=== PATIENT | female | born 1955 | race Caucasian/White ===

== ENCOUNTER → 2016-09-26 | Outpatient (CLI) | payer OTHER | LOC: BMCIMAGING 10:20 | PROVIDERS: ATTEND Podiatrist Foot & Ankle Surgery | DX: M79.672 Pain in left foot (principal) ==

== ENCOUNTER → 2017-05-20 | Outpatient (CLI) | payer OTHER | LOC: FIMAGING 14:50 | PROVIDERS: ATTEND Physician Assistant Medical | DX: Z12.31 Encounter for screening mammogram for malignant neoplasm of breast (principal); R92.8 Other abnormal and inconclusive findings on diagnostic imaging of breast | CPT/HCPCS: G0202 ==

== ENCOUNTER → 2017-05-29 | Outpatient (CLI) | payer OTHER | LOC: FIMAGING 09:04 | PROVIDERS: ATTEND Physician Assistant Medical | DX: R92.8 Other abnormal and inconclusive findings on diagnostic imaging of breast (principal); Z80.3 Family history of malignant neoplasm of breast | CPT/HCPCS: G0204 ==

== ENCOUNTER → 2017-06-09 | Outpatient (CLI) | payer OTHER ==
[~2017-06-09] MED LIST: BUPIVACAINE 0.5% 10 ML SDV ONE; LIDOCAINE 1% 300 MG/30 ML SDV ONE
== END ==
LOC: FIMAGING 07:06
PROVIDERS: ATTEND Physician Assistant Medical
PROC: 0HBV3ZX Excision of Bilateral Breast, Percutaneous Approach, Diagnostic (ICD-10-PCS; principal; 2017-06-09)
DX: C50.911 Malignant neoplasm of unspecified site of right female breast (principal); N60.12 Diffuse cystic mastopathy of left breast

== ENCOUNTER 2017-07-08 10:40 | Observation (INO) | payer OTHER ==
[2017-07-08] MEDS ORDERED: LR 1,000 ML IV ONE (10:51)
[2017-07-08] MEDS ORDERED: ceFAZolin 2 GM/SWFI 2 GM/20 ML SYR IVP ONE (10:51)
[2017-07-08] MEDS ORDERED: THROMBIN (BOVINE) 20,000 UNIT SPRAY TP ONE (11:06)
[2017-07-08] MEDS ORDERED: BUPIVACAINE 0.25% 30 ML SDV ONE ×2 (11:06→11:09)
[2017-07-08] MEDS ORDERED: GENTAMICIN SULFATE 80 MG/2 ML VIAL ONE (11:07)
[2017-07-08] MEDS ORDERED: BACITRACIN ZINC 14.2 GM OINTTUBE TP ONE (11:07)
[2017-07-08] MEDS ORDERED: BACITRACIN 50,000 UNITS/10 ML SYR IRR ONE (11:08)
[2017-07-08] MEDS ORDERED: ceFAZolin 1 GM/5 ML SYR ONE (11:08)
--- NOTE | 2017-07-08 12:52 | PDHPUP ---
History & Physical Update H&P update statement: This history and physical update is based on an assessment of the patient which was completed after admission or registration (within 24 hours), but prior to the surgery/procedure. H&P update: H&P reviewed & patient examined, no change in patient's condition since H&P completed (Dr. Carver will be doing reconstruction)
[2017-07-08] MEDS ORDERED: PROPOFOL 200 MG/20 ML VIAL ONE (13:16)
[2017-07-08] MEDS ORDERED: fentaNYL 250 MCG/5 ML INJ ONE (13:16)
[2017-07-08] MEDS ORDERED: LIDOCAINE 2% 5 ML SDV ONE (13:25)
[2017-07-08] MEDS ORDERED: ROCURONIUM 50 MG/5 ML VIAL ONE ×3 (13:25→16:09)
[2017-07-08] MEDS ORDERED: DEXAMETHASONE 4 MG/ML VIAL ONE (13:42)
[2017-07-08] MEDS ORDERED: ONDANSETRON 4 MG/2 ML VIAL ONE ×2 (13:43→17:29)
[2017-07-08] MEDS ORDERED: SUGAMMADEX SODIUM 200 MG/2 ML VIAL IVP ONE ×2 (13:44→17:29)
[2017-07-08] MEDS ORDERED: MIDAZOLAM 2 MG/2 ML VIAL IVP ONE (13:46)
--- NOTE | 2017-07-08 13:49 | PDANEPAE ---
ANE History of Present Illness h/o breast ca. for b/l mastectomy and reconstruction ANE Past Medical History - Cardiovascular History Hx Hypertension: No Hx Arrhythmias: No Hx Chest Pain: No Hx Coronary Artery / Peripheral Vascular Disease: No Hx CHF / Valvular Disease: No Hx Palpitations: No - Pulmonary History Hx COPD: No Hx Asthma/Reactive Airway Disease: No Hx Recent Upper Respiratory Infection: No Hx Oxygen in Use at Home: No Hx Sleep Apnea: No Sleep Apnea Screening Result - Last Documented: Negative - Neurologic History Hx Cerebrovascular Accident: No Hx Seizures: No Hx Dementia: No - Endocrine History Hx Diabetes: No Hypothyroid: No Hyperthyroid: No Obesity: no - Renal History Hx Renal Disorders: No - Liver History Hx Hepatic Disorders: No - Neurological & Psychiatric Hx Hx Neurological and Psychiatric Disorders: Yes Neurological / Psychiatric History Comment: 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 - Cancer History Hx Cancer: No - Congenital Disorder History Hx Congenital Disorders: No - GI History GERD: no Hx Gastrointestinal Disorders: No - Chronic Pain History Chronic Pain: No - Surgical History Prior Surgeries: none ANE Review of Systems Review of systems is: negative Review of Systems: - Exercise capacity METS (RN): 5 METS ANE Patient History - Allergies Allergies/Adverse Reactions: No Known Allergies Allergy (Verified 07/02/17 10:52) - Home Medications Home medications: home medication list seen and reviewed Home Medications: Herbals/Supplements -Info Only 1 ea PO DAILY 07/02/17 [Last Taken Unknown] - NPO status NPO Since - Liquids (Date): 07/08/17 NPO Since - Liquids (Time): 08:00 NPO Since - Solids (Date): 07/07/17 NPO Since - Solids (Time): 22:30 - Anes Hx Anes Hx: no prior problems - Smoking Hx Smoking Status: Never smoked - Family Anes Hx Family Hx Anesthesia Complications: none ANE Labs/Vital Signs - Vital Signs Blood Pressure: 105/75 Heart Rate: 57 Respiratory Rate: 16 O2 Sat (%): 98 Height: 170.18 cm Weight: 71.668 kg ANE Physical Exam - Airway Neck exam: FROM Mallampati Score: Class 1 Mouth exam: normal dental/mouth exam - Pulmonary Pulmonary: no respiratory distress - Cardiovascular Cardiovascular: regular rate and rhythym - ASA Status ASA Status: II ANE Anesthesia Plan Anesthesia Plan: general endotracheal anesthesia
[2017-07-08] MEDS ORDERED: MIDAZOLAM 2 MG/2 ML VIAL ONE (13:53)
[2017-07-08] MEDS ORDERED: HYDROmorphONE/DILAUDID 2 MG/ML INJ ONE (14:20)
[2017-07-08] MEDS ORDERED: METHYLENE BLUE 0.5% 50 MG/10 ML AMP ONE (15:41)
[2017-07-08] MEDS ORDERED: ceFAZolin 1 GM VIAL ONE (16:58)
[2017-07-08] MEDS ORDERED: KETOROLAC 30 MG/1 ML SDV ONE (17:29)
--- NOTE | 2017-07-08 17:35 | POSTANESTH ---
Post Anesthetic Evaluation Cardiovascular Status: Normal, Stable Respiratory Status: Normal, Stable Level of Consciousness/Mental Status: Can Participate in Eval Pain Control: Adequate, Prn Tx Ordered Nausea/Vomiting Control: Adequate, Prn Tx Ordered Complications Possibly Related to Anesthesia: None Noted
--- NOTE | 2017-07-08 17:44 | POSTOPPROG ---
Post Op Note Date of Operation: 07/08/17 Surgeon: Gricel Perez Gopherman: niurka Anesthesia: GET(General Endotracheal) Pre-op Diagnosis: R breast ca Post-op Diagnosis: same Indication: 61yo F with R breast cancer Procedure: B mastectomy, B SLN bx Findings: B SLN neg Inf/Abcess present in the surg proc area at time of surgery?: No EBL: Minimal
[2017-07-08] MEDS ORDERED: HYDROmorphONE/DILAUDID 1 MG/ML INJ IVP PRN ×2 (17:47→18:01)
[2017-07-08] MEDS ORDERED: ONDANSETRON 4 MG/2 ML VIAL IVP PRN ×2 (17:47→18:01)
[2017-07-08] MEDS ORDERED: ACETAMINOPHEN 325 MG TAB PO PRN (17:47)
[2017-07-08] MEDS ORDERED: diphenhydrAMINE 25 MG CAP PO PRN (17:47)
[2017-07-08] MEDS ORDERED: ONDANSETRON DISINTEGRATING 4 MG TAB PO PRN (17:47)
[2017-07-08] MEDS ORDERED: ACETAMINOPHEN 500 MG TAB PO PRN (18:01)
[2017-07-08] MEDS ORDERED: fentaNYL 100 MCG/2 ML INJ IVP PRN (18:01)
[2017-07-08] MEDS ORDERED: NALOXONE HCL 0.4 MG/ML INJ IVP PRN (18:01)
[2017-07-08] MEDS ORDERED: OXYCODONE/APAP 5/325 TAB PO PRN (18:01)
[2017-07-08] MEDS ORDERED: LR 500 ML IV PRN (18:01)
[2017-07-08] MEDS ORDERED: PROMETHAZINE HCL 25 MG/ML INJ IVP PRN (18:01)
[2017-07-08] MEDS ORDERED: METOCLOPRAMIDE 10 MG/2 ML VIAL IVP PRN (18:01)
[2017-07-08] MEDS ORDERED: LABETALOL HCL 5 MG/ML 20 ML MDV IVP PRN (18:01)
[2017-07-08] MEDS ORDERED: HYDROCODONE/APAP 5/325 TAB PO PRN (18:01)
[2017-07-08] MEDS ORDERED: ALBUTEROL 3 ML DEYVIAL IH PRN (18:01)
--- NOTE | 2017-07-08 19:18 | GOP ---
[f rep st] OPERATIVE REPORT DATE OF OPERATION: 07/08/2017 SURGEON: Deejay Carver MD RECOVERY ROOM RN: MARTIN Franz ANESTHESIA: General. PREOPERATIVE DIAGNOSIS: Breast cancer. POSTOPERATIVE DIAGNOSIS: Breast cancer. PROCEDURE PERFORMED: Bilateral breast reconstruction with tissue expanders and AlloDerm. FINDINGS: Bilateral mastectomies with negative nodes. SPECIMENS: None. ESTIMATED BLOOD LOSS: 40. INDICATIONS: The patient is a 61-year-old female with newly diagnosed breast cancer. She elected to undergo bilateral nipple-sparing mastectomies with Dr. Gricel Perez and presents today for immediate reconstruction with tissue expanders and AlloDerm. DESCRIPTION OF PROCEDURE: The patient was met in the preoperative area where the risks and benefits were discussed with her at length, which include but are not limited to infection, bleeding, hematoma, seroma, partial or total mastectomy flap necrosis, partial or total nipple necrosis, paresthesias, asymmetries, poor cosmesis, and need for further revision surgeries. She was agreeable to this and therefore signed the operative consent. She was then brought into the operating room and, prior going to sleep, a timeout was performed where all in the room agreed on the site and the procedure to be performed. She received 2 g of Ancef perioperatively, before any incision was made, and SCDs were placed for DVT prophylaxis. The bilateral nipple-sparing mastectomy parts will be dictated by my colleague Dr. Gricel Perez. We started our part after the mastectomies were done. On the right side, I deemed the mastectomy skin flaps to be viable, as well as the nipple. The pocket was washed out, and hemostasis was confirmed. We then began by developing a subpectoral pocket by identifying the lateral border of the pectoralis major muscle and on its lateral aspect, raising this up medially and superiorly, taking care to coagulate any intercostal perforators, and this was then detached off the inferior attachment along the chest wall. Once we were happy with the smooth contour of the pectoralis major pocket, measurements were made and deemed the pocket to be approximately 13 cm in base width. We therefore chose the tissue fast food team member to be a 133MX-13-T. The footplate was then traced out with methylene blue, and a 12 x 20 piece of AlloDerm was cut to contour and sutured to reconstruct the IMF and the lateral chest wall. This was done with interrupted 2-0 Vicryl sutures and interrupted 2 -0 PDS sutures. We then washed out the pocket with copious amounts of triple- antibiotic saline. The fast food team member was then taken out and all the air was taken out in a closed sterile fashion, and this was then placed within the subpectoral pocket, and the tabs were sutured to the chest wall with 2-0 PDS suture. The subpectoral pocket was then completed by suturing the superior border of the AlloDerm to inferior border of the pectoralis major muscle with a running 2-0 Vicryl suture. A 15-Tamazight round NANCY drain was placed in the lateral axillary gutter and sutured to the skin with 2-0 silk suture. Then, under closed sterile conditions , sterile saline infused with methylene blue was instilled into the right tissue expanders, up to 350 cc, taking care to not put any undue tension onto the skin flaps, as well as the nipple. The same procedure was then performed on the left side. Again, a 133MX-13-T fast food team member was used, and a 12 x 20 piece of AlloDerm, cut to contour, was made for the subpectoral pocket. This fast food team member on the left side was inflated to 380 cc in a closed sterile, of methylene blue and sterile saline. Minor tailoring was done on the incisions. The incisions were then both closed with a 3-0 Monocryl subdermal suture and a running 4-0 Monocryl suture. Steri-Strips were placed. compression gauze and a support bra were then placed. The count was correct at the end of the case. She was awoken and taken to the PACU in good condition. INTRAVENOUS FLUIDS: 700. URINE OUTPUT: Not recorded. COMPLICATIONS: None. /[id number]/MODL MTDD
[2017-07-08] MEDS: CYCLOBENZAPRINE 10 MG TAB PO SCH (22:53)
[2017-07-08] MEDS: HYDROCODONE/APAP 5/325 TAB PO PRN (23:51)
[2017-07-09] MEDS: ceFAZolin 0.5 GM in NS 50 ML IV SCH ×2 (01:16→11:54)
--- NOTE | 2017-07-09 08:16 | SOAPPROG ---
SOAP Progress Note Assessment/Plan: Assessment: POD#1 bilateral mastectomies with reconstruction Plan: 07/09/17 08:13 1. Regular diet 2. PO pain meds 3. Drain teaching 4. Likely DC home later today Subjective: I feel pretty good Objective: Vital Signs Temp Pulse Resp BP Pulse Ox 36.8 C 59 L 17 113/69 93 07/09/17 05:05 07/09/17 05:05 07/09/17 05:05 07/09/17 05:05 07/09/17 05:05 07/08/17 07/09/17 07/10/17 05:59 05:59 05:59 Intake Total 1120 Output Total 640 Balance 480 NAD Bilateral breast with moderate ecchymoses, nipples pink and viable, NANCY drains serosang - Pending Discharge Pending Discharge Within 24 Hours: Yes Pending Discharge Date: 07/10/17 Pending Discharge Time: 11:00 ICD10 Worksheet Patient Problems: Problems Problem Status Onset Breast cancer Acute Breast cancer Acute - ICD10 Problem Qualifiers (1) Breast cancer (2) Breast cancer
--- NOTE | 2017-07-09 09:06 | SOAPPROG ---
SOAP Progress Note Assessment/Plan: Assessment: POD#1 s/p B mastectomy with B SLN bx with reconstruction by Dr. Carver Pain controlled Regular diet Dressings intact Drains serosanguinous to suction - educate on drain care S: spilled water on dressings last night - changed without difficulty O: laying in bed, comfortable, NAD No increased WOB Dressings intact. NANCY x 2 serosanguinous Objective: Vital Signs Temp Pulse Resp BP Pulse Ox 36.8 C 70 18 105/60 94 07/09/17 08:20 07/09/17 08:20 07/09/17 08:20 07/09/17 08:20 07/09/17 08:20 07/08/17 07/09/17 07/10/17 05:59 05:59 05:59 Intake Total 1120 Output Total 640 38 Balance 480 -38 ICD10 Worksheet Patient Problems: Problems Problem Status Onset Breast cancer Acute Breast cancer Acute
[2017-07-09] MEDS: HYDROCODONE/APAP 5/325 TAB PO PRN ×4 (09:57→23:48)
[2017-07-09] MEDS: CYCLOBENZAPRINE 10 MG TAB PO SCH ×3 (09:57→21:39)
--- NOTE | 2017-07-09 12:36 | GOP ---
[f rep st] OPERATIVE REPORT DATE OF OPERATION: 07/08/2017 SURGEON: Gricel Perez MD SUPERVISOR [employer] FINISHING: ENRIQUE Sharma. ANESTHESIOLOGIST: Wai Larry MD. PREOPERATIVE DIAGNOSIS: Right breast invasive ductal carcinoma, and strong family history of breast cancer. POSTOPERATIVE DIAGNOSIS: Right breast invasive ductal carcinoma, and strong family history of breast cancer. PROCEDURE PERFORMED: Bilateral nipple sparing mastectomy with bilateral sentinel lymph node. FINDINGS: Negative sentinel lymph node. SPECIMENS: Left mastectomy short superior, long lateral. Left sentinel lymph node. Right mastectomy short superior, long lateral. Right sentinel lymph node. ESTIMATED BLOOD LOSS: 25 cc. INDICATIONS: The patient is a 61-year-old woman, who was found to have right breast cancer. She has a very strong family history of breast cancer, and desired bilateral mastectomy. DESCRIPTION OF PROCEDURE: The patient was brought into the operating room, placed supine on the table, and general anesthesia was administered. Her bilateral chest and axilla were prepped and draped in the usual sterile fashion. I started on the left side. I made an incision in the inframammary fold. I created a superior skin flap. I used uterine dilators to help define the plane and continued with a nipple sparing mastectomy. My dissection occurred to the clavicle, sternum, inframammary fold, and mid axillary line. The breast was removed from the pectoralis fascia, and was marked short superior , long lateral. I then used the gamma probe to identify the sentinel lymph node in the left axilla. This was excised and sent to Pathology for frozen; it returned negative. Hemostasis was achieved in the cavity. In a similar fashion , I performed a nipple sparing mastectomy on the right side as well as the right sentinel lymph node. This sentinel lymph node also returned negative. Hemostasis was achieved in this cavity as well. Dr. Carver was then able to enter the operating room, and proceed with his portion of the case. /[id number]/MODL MTDD
[2017-07-10] MEDS: HYDROCODONE/APAP 5/325 TAB PO PRN ×3 (05:16→14:48)
[2017-07-10] MEDS: CYCLOBENZAPRINE 10 MG TAB PO SCH (09:22)
[2017-07-10 09:30] VITALS: BP 123/67; PULSE 56; RESP 18; TEMP 97.3; O2SAT 95
--- NOTE | 2017-07-10 10:44 | SOAPPROG ---
SOAP Progress Note Assessment/Plan: Assessment/Plan: POD#2 s/p B mastectomy with B SLN bx with reconstruction by Dr. Carver Pain controlled Regular diet Dressings intact Drains serosanguinous to suction D/C IV Changed abx to PO Keflex NANCY drain education before discharge Discharge this afternoon S: Glad she stayed another night, but feels that this afternoon she will be ready to go home. Feeling well today. She has not received any education about her NANCY drains. Her IV blew this morning. O: laying in bed, comfortable, NAD, No increased WOB Dressings intact. NANCY x 2 serosanguinous. Objective: Vital Signs Temp Pulse Resp BP Pulse Ox 36.3 C 56 L 18 123/67 H 95 07/10/17 09:30 07/10/17 09:30 07/10/17 09:30 07/10/17 09:30 07/10/17 09:30 07/09/17 07/10/17 07/11/17 05:59 05:59 05:59 Intake Total 1120 1800 Output Total 640 256.5 35 Balance 480 1543.5 -35 ICD10 Worksheet Patient Problems: Problems Problem Status Onset Breast cancer Acute Breast cancer Acute
[2017-07-10] MEDS ORDERED: CEPHALEXIN 250 MG CAP PO SCH (12:00)
--- NOTE | 2017-07-10 13:51 | GDS ---
[f rep st] DISCHARGE SUMMARY REASON FOR ADMISSION: Scheduled nipple-sparing bilateral mastectomy by Dr. Gricel Perez, with breast reconstruction with Dr. Carver, tissue basketball player with dermal graft of AlloDerm, Dr. Carver and Fredy ramon. Surgery due to right breast cancer. DISCHARGE DIAGNOSIS: Right breast cancer with no evidence of malignancy in lymph nodes. HOSPITAL COURSE: The patient arrived to the hospital on July 08, 2017, where she 1st received nuc [facility] medicine lymphoscintigraphy which showed in the right breast sentinel right axillary lymph node is suspected and left breast left axillary sentinel lymph node is visualized. The breast was injecte d with Lymphoseek in preparation for surgery. The patient then underwent bilateral nipple-sparing ma stectomy with bilateral sentinel lymph node procedure for right breast invasive ductal carcinoma and strong family history of breast cancer, done by surgeon, Dr. Gricel Perez. Following this procedure, the patient underwent bilateral breast reconstruction with tissue expanders and AlloDerm by Dr. Angelina Carver. Bilateral mastectomy findings included negative nodes. Postop day 1, patient's pain was controlled, she was started on a regular diet, and her NANCY drains were functioning. She did not feel quite ready to go home and wished to stay another night. Postop day 2, July 10, 2017, patient co ntinued to have controlled pain, tolerating a regular diet. Was educated on her NANCY drains, changed t o oral Keflex, had her IV discharged, and reported feeling much better and ready to go home in the af ternoon. Patient was discharged in the afternoon on July 10, 2017. DISCHARGE CONDITION: The patient is able to ambulate independently, her pain is controlled, and she is in stable condition. DISCHARGE MEDICATIONS: Resume home medications. Other scripts provided by Plastic Surgery. See EMR for home medication details. FOLLOWUP: The patient is to follow up with Dr. Gricel Perez or Monie Roca, ENRIQUE, in 2 weeks. Abbyo w up with Plastic surgery as scheduled. /[id number]/MODL
== END 2017-07-10 15:20 | disposition home or self-care (01) ==
LOC: F3N 10:40 → F1N 17:35
PROVIDERS: ADMIT Surgery; ATTEND Surgery
PROC: 07B50ZX Excision of Right Axillary Lymphatic, Open Approach, Diagnostic (ICD-10-PCS; principal; 2017-07-08 13:15)
PROC: 0HTV0ZZ Resection of Bilateral Breast, Open Approach (ICD-10-PCS; principal; 2017-07-08 13:15)
PROC: 07B60ZX Excision of Left Axillary Lymphatic, Open Approach, Diagnostic (ICD-10-PCS; principal; 2017-07-08 13:15)
PROC: 0HHV0NZ Insertion of Tissue Expander into Bilateral Breast, Open Approach (ICD-10-PCS; 2017-07-08 13:15)
DX: C50.911 Malignant neoplasm of unspecified site of right female breast (principal); N60.32 Fibrosclerosis of left breast
CPT/HCPCS: 19303; 19357; 38525; 78195; A9520; G0378; J0690; J1100; J1170; J1580; J1885; J2250; J2405; J2704; J3010; Q4116; Q9968

== ENCOUNTER → 2017-10-08 | Outpatient (CLI) | payer OTHER | LOC: FIMAGING 14:08 | PROVIDERS: ATTEND Internal Medicine Hematology & Oncology | DX: Z13.820 Encounter for screening for osteoporosis (principal); M85.89 Other specified disorders of bone density and structure, multiple sites; R29.890 Loss of height; Z78.0 Asymptomatic menopausal state ==